=== PATIENT | female | born 1995 | race Caucasian/White ===

== ENCOUNTER 2018-02-16 12:40 | Outpatient (CLI) | payer OTHER, BC, SELFPAY ==
[2018-02-16 12:59] VITALS: BMI 21.9
--- NOTE | 2018-02-16 23:21 | OB.TRI.NOTE ---
History of Present Illness Date of Service: 02/16/18 Was patient seen by the physician?: No Reason For Visit: R/O LABOR Date of Service: 02/16/18 Final MYRON: 04/10/18 Final MYRON Source: US <20 weeks Gestational age: 32 Weeks and 3 Days History of Present Illness: 32+ week intrauterine presents with some transient contractions at home. Since she has arrived these have subsided. She has also had some white vaginal discharge. care otherwise uneventful. Allergies No Known Allergies Allergy (Verified 02/16/18 13:00) NST - FHR Rate Baby A NST Reactive:: Yes FHR Category:: Category I Uterine Activity:: No contractions noted on monitor. Impression/Plan 32+ week intrauterine with transient contractions and vaginal discharge. Cervix is nonthreatening and NST is reactive. No evidence of rupture of membranes. Will discharge to home with routine follow-up in the office.
== END 2018-02-16 13:55 | disposition home or self-care (01) ==
LOC: WPOUT 12:55 → WP 12:56
PROVIDERS: Family Provider Family Medicine; PCP Family Medicine; Visit Provider Obstetrics & Gynecology
DX: O60.03 Preterm labor without delivery, third trimester (principal); Z3A.32 32 weeks gestation of pregnancy
CPT/HCPCS: 59025; 59050; 87086; 99218; G0378

== ENCOUNTER → 2018-03-11 13:30 | Outpatient (CLI) | payer OTHER, BC, SELFPAY ==
[2018-03-12 12:34] LABS: Group B Strep DNA By PCR Negative (Negative); Internal Control PASS; Probe Check PASS; Specimen Processing Control PASS
== END ==
PROVIDERS: Visit Provider Obstetrics & Gynecology
DX: Z36.85 Encounter for antenatal screening for Streptococcus B (principal)
CPT/HCPCS: 87081; 87653

== ENCOUNTER 2018-03-24 10:15 | Outpatient (CLI) | payer OTHER, BC, SELFPAY ==
[2018-03-24 10:30] VITALS: BMI 24.2
[2018-03-24 11:20] LABS: ROM Internal Control Test YES-OK TO RESULT pt. (Internal QC); ROM Patient Test Negative (Negative)
--- NOTE | 2018-03-25 08:00 | OB.TRI.NOTE ---
History of Present Illness Date of Service: 03/24/18 Was patient seen by the physician?: No Reason For Visit: R/O LABOR Date of Service: 03/24/18 Final MYRON: 04/10/18 Final MYRON Source: US <20 weeks Gestational age: 37 Weeks and 5 Days History of Present Illness: 37+ week intrauterine presents with contractions. care unremarkable. Allergies No Known Allergies Allergy (Verified 03/24/18 10:45) NST - FHR Rate Baby A NST Reactive:: Yes FHR Category:: Category I Uterine Activity:: Multiple contractions noted. Impression/Plan 37+ week intrauterine with false labor. No change in cervix after observing for several hours. Reactive nonstress test. Will release to home with routine follow-up. To return with increasing strength of contractions.
== END 2018-03-24 12:50 | disposition home or self-care (01) ==
LOC: WPOUT 10:35 → WP 10:36
PROVIDERS: Family Provider Family Medicine; PCP Family Medicine; Visit Provider Obstetrics & Gynecology
DX: O47.1 False labor at or after 37 completed weeks of gestation (principal); Z3A.37 37 weeks gestation of pregnancy
CPT/HCPCS: 59025; 59050; 84112; 99218; G0378

== ENCOUNTER 2018-04-03 22:05 | Outpatient (CLI) | payer OTHER, BC, SELFPAY ==
[2018-04-03 22:53] VITALS: BMI 24.4
[2018-04-04 00:05] LABS: Mucous, Urine 0 SEEN /hpf (<or=2+)
[2018-04-04 00:08] LABS: Color, Urine Yellow (Yellow); Glucose, Dipstick Normal (Normal); Ketone-Dipstick 5 mg/dl (Negative); Leukocyte Esterase-Dipstick 500 /ul (Negative); Nitrite-Dipstick Negative (Negative); Occult Blood-Urine 150 /ul (Negative); Protein-Dipstick 30 mg/dl (Negative); Specific Gravity, Urine 1.015 (1.002-1.030); Urine Bilirubin Dipstick Negative (Negative); Urine Clarity Cloudy (Clear); Urine Urobilinogen 1 mg/dl (Normal)
[2018-04-04 00:18] LABS: Bacteria RARE /hpf (None Seen); Squamous Epithelial Cells - UA 0-5 SEEN /hpf (5-10); White Blood Cells >100 SEEN /hpf (0-5)
[2018-04-04 00:19] LABS: Red Blood Cells-Urine 0-5 SEEN /hpf (0-5)
--- NOTE | 2018-04-04 01:08 | OB.TRI.NOTE ---
- Problem List (1) False labor after 37 weeks of gestation without delivery Status: Acute (2) Acute cystitis during in third trimester Status: Acute History of Present Illness Was patient seen by the physician?: No Reason For Visit: R/O LABOR Date of Service: 04/04/18 Final MYRON: 04/10/18 Final MYRON Source: US <20 weeks Gestational age: 39 Weeks and 1 Days History of Present Illness: 22yo G1 @ 39 1/7wga with c/o painful contractions. Allergies No Known Allergies Allergy (Verified 04/03/18 22:54) NST - FHR Rate Baby A Baseline: 150 Variability:: Moderate Accelerations:: 15 x 15 Decelerations:: None NST Reactive:: Yes FHR Category:: Category I Uterine Activity:: 4/10 min Impression/Plan 39 1/7wga with acute cystitis, false labor, Cat I FHR -SVE 2-3cm/90/-3 per RN Exam x 2 - previously 4cm/90% effaced in office - likely same exam -U/A - with blood and leuks - Rx Keflex -d/c home -f/u in office next week as scheduled.
== END 2018-04-04 02:20 | disposition home or self-care (01) ==
LOC: WPOUT 22:36 → WP 22:41
PROVIDERS: Family Provider Family Medicine; PCP Family Medicine; Visit Provider Obstetrics & Gynecology
DX: O47.1 False labor at or after 37 completed weeks of gestation (principal); Z3A.39 39 weeks gestation of pregnancy; O23.13 Infections of bladder in pregnancy, third trimester
CPT/HCPCS: 59025; 59050; 81001; 99218; G0378

== ENCOUNTER 2018-04-04 05:05 | Inpatient (IN) | payer OTHER, BC, SELFPAY ==
[2018-04-04 05:36] VITALS: BMI 41.6
[2018-04-04] MEDS: Lactated Ringers 1,000 ML 50 ML IV (05:40)
[2018-04-04 06:14] LABS: Hematocrit 43.1 % (37-47); Hemoglobin 14.3 g/dl (12.0-15.0); Mean Corp Hgb Conc 33.2 g/gl (32-36); Mean Corpuscular Hgb 32.2 pg (27.0-32.0); Mean Corpuscular Volume 97.1 fL (81-99); Mean Platelet Vol. 13.4 fl (6.2-12.0); Platelet Count 150 K/mm3 (150-450); RBC Distribution Width CV 15.7 % (11.6-14.6); RBC Distribution Width SD 56.2 fl (35.1-43.9); Red Blood Count 4.44 M/mm3 (4.2-5.4); White Blood Count 16.1 K/mm3 (4.4-11.0)
[2018-04-04 06:19] LABS: Scan Indicated on CBC? Y/N NO
[2018-04-04] MEDS: Oxytocin 30 units/NS 500 ml 30 UNITS/500 ML IV.SOLN 334 UNITS IV (08:48)
--- NOTE | 2018-04-04 09:02 | PCM.OB.VAG ---
Vaginal Delivery Maternal Presentation: Active Labor, Spontaneous Rupture of Membranes Amniotic Membrane Rupture Type: Spontaneous at home Amniotic Fluid Description: Clear Final MYRON: 04/10/18 Final MYRON Source: US <20 weeks Gestational age: 39 Weeks and 1 Days Date of Procedure: 04/04/18 Pre-Operative Diagnosis: IUP Post-Operative Diagnosis: IUP Surgery/ Procedure Performed: Spontaneous Vaginal Delivery Type of Anesthesia: Local with 1% lidocaine Description of Procedure: Spontaneous vaginal delivery of a viable male with Apgars of 8/9 with a normal three-vessel placenta from an occiput anterior presentation. No episiotomy. Second-degree midline laceration repaired with 3-0 Rapide suture under local. Sponge counts okay. Delivery physician: Jamir Segura MD. Presentation: Vertex Placental Delivery Description: Spontaneous Placenta Disposition: [facility] Cord Vessel Description: 3 Vessels Cord Gases drawn per routine: ABG, VBG Cord Entanglement: None Estimated Blood Loss: 250 cc A gender: Male (1 minute): 8 (5 minute): 9 Episiotomy Description: None Laceration: Midline, Perineal Extension/lac, 2nd degree Medications given after delivery: IV Pitocin Complications: None
--- NOTE | 2018-04-04 09:05 | PCM.DCVAG ---
Discharge Diet: No Restrictions Discharge Activity: May Shower, May Take a Tub Bath May resume sexual activity in: 4-6 weeks Additional Activity Instructions:: Nothing in the vagina for 4-6 weeks. You may return to work/school in 6 weeks. Call your doctor if you observe: Fever of 101 or Higher, Inability to urinate, Inability to have a bowel movement, Using more than one pad per hour Additional Instructions: If you experience any of the following, contact your healthcare provider. Bleeding that soaks a pad every hour for 2 hours Unrelieved incision or abdominal pain Swelling, redness, discharge or bleeding from your incision or episiotomy site Your incision begins to separate Problems urinating (including inability to urinate or burning while urinating). Visual changes Severe headache Flu-like symptoms Pain or redness in one of both of your breasts Pain, warmth, tenderness or swelling in your legs, especially the calf area Frequent nausea and vomiting Symptoms of depression or anxiety If you experience any of the following, call 911 or go to the nearest Emergency Room. Chest pain Problems breathing Seizure activity Partial or complete paralysis of a body part, slurred speech, weakness or drooping of the face, or a sudden inability to walk or hold your balance Allergies/Adverse Reactions: Allergies No Known Allergies Allergy (Verified 04/03/18 22:54) Medications to take at Discharge Cranberry 400 mg PO DAILY 04/08/17 Ferrous Sulfate 325 mg PO DAILY 02/16/18 Folic Acid 0.8 mg PO DAILY 02/16/18 Xhu521/FA/Omega3/Dha/Fish Oil [ Gummies] 1 each PO DAILY 02/16/18 Cephalexin 500 mg PO Q6H #28 cap 04/04/18 Please Follow Up With: Jamir Segura MD - [phone] When: Call to make an appointment with your doctor in 6 weeks. Primary Care Physician: Hernandez Sifuentes MD [Primary Care Provider] - Test Results: Test results from this visit will be discussed in further detail at your follow-up appointment, if applicable.
--- NOTE | 2018-04-04 09:06 | DCINST_ITS ---
Discharge Diet: No Restrictions Discharge Activity: May Shower, May Take a Tub Bath May resume sexual activity in: 4-6 weeks Additional Activity Instructions:: Nothing in the vagina for 4-6 weeks. You may return to work/school in 6 weeks. Call your doctor if you observe: Fever of 101 or Higher, Inability to urinate, Inability to have a bowel movement, Using more than one pad per hour Additional Instructions: If you experience any of the following, contact your healthcare provider. * Bleeding that soaks a pad every hour for 2 hours * Unrelieved incision or abdominal pain * Swelling, redness, discharge or bleeding from your incision or episiotomy site * Your incision begins to separate * Problems urinating (including inability to urinate or burning while urinating) . * Visual changes * Severe headache * Flu-like symptoms * Pain or redness in one of both of your breasts * Pain, warmth, tenderness or swelling in your legs, especially the calf area * Frequent nausea and vomiting * Symptoms of depression or anxiety If you experience any of the following, call 911 or go to the nearest Emergency Room. * Chest pain * Problems breathing * Seizure activity * Partial or complete paralysis of a body part, slurred speech, weakness or drooping of the face, or a sudden inability to walk or hold your balance Allergies/Adverse Reactions: Allergies No Known Allergies Allergy (Verified 04/03/18 22:54) Medications to take at Discharge Cranberry 400 mg PO DAILY 04/08/17 Ferrous Sulfate 325 mg PO DAILY 02/16/18 Folic Acid 0.8 mg PO DAILY 02/16/18 Vbm642/FA/Omega3/Dha/Fish Oil [ Gummies] 1 each PO DAILY 02/16/18 Cephalexin 500 mg PO Q6H #28 cap 04/04/18 Please Follow Up With: Jamir Segura MD - [phone] When: Call to make an appointment with your doctor in 6 weeks. Primary Care Physician: Hernandez Sifuentes MD [Primary Care Provider] - Test Results: Test results from this visit will be discussed in further detail at your follow- up appointment, if applicable.
[2018-04-04] MEDS: Oxytocin 30 units/NS 500 ml 30 UNITS/500 ML IV.SOLN 167 UNITS IV (09:20)
[2018-04-04] MEDS: Acetaminophen 325 MG Tablet PO (09:26)
[2018-04-04] MEDS: 0.9% Saline Lock 10 ML Syringe IV (10:34)
[2018-04-04] MEDS: Ferrous Sulfate 325 MG Tablet PO (10:52)
[2018-04-04] MEDS: Folic Acid 1 MG Tablet PO (10:52)
[2018-04-04 11:44] VITALS: BP 122/69; PULSE 111; RESP 18; TEMP 36.9; O2SAT 97
[2018-04-04 15:56] VITALS: BP 104/73; PULSE 125; RESP 18; TEMP 37.1; O2SAT 98
[2018-04-04 20:45] VITALS: BP 122/65; PULSE 115; RESP 18; TEMP 36.7; O2SAT 97
[2018-04-05 00:30] VITALS: BP 108/64; PULSE 112; RESP 18; TEMP 36.6; O2SAT 98
[2018-04-05] MEDS: Ibuprofen 600 MG Tablet PO ×3 (00:54→20:03)
[2018-04-05 04:20] VITALS: BP 99/50; PULSE 113; RESP 18; TEMP 36.4; O2SAT 100
[2018-04-05 09:00] VITALS: BP 111/57; PULSE 103; RESP 16; TEMP 36.5
--- NOTE | 2018-04-05 09:21 | PCM.PN.OB ---
Subjective: day #1 Patient without complaints. Breast-feeding going well. Minimal vaginal bleeding. - Physical Exam Vital Signs Temp Pulse Resp BP Pulse Ox 97.5 F L 113 H 18 99/50 L 100 04/05/18 04:20 04/05/18 04:20 04/05/18 04:20 04/05/18 04:04/05/18 04:20 Oxygen Delivery Method Room Air Weight: 213 lb 6.4 oz Body Mass Index (BMI) 41.6 Intake and Output for Last 24 Hours 04/03/18 04/04/18 04/05/18 23:59 23:59 23:59 Intake Total 1300 / 1300 Output Total 1000 / 1000 Balance 300 / 300 Medical Necessity - Tobacco Use Smoking Status: Former smoker Assessment/Plan All Active Problems False labor after 37 weeks of gestation without delivery (Acute) Acute cystitis during in third trimester (Acute) day #1 Doing well. Continuing present care.
[2018-04-05] MEDS: Ferrous Sulfate 325 MG Tablet PO (11:42)
[2018-04-05] MEDS: Folic Acid 1 MG Tablet PO (11:42)
[2018-04-05 14:00] VITALS: BP 107/62; PULSE 102; RESP 17; TEMP 36.5
[2018-04-05 19:52] VITALS: BP 105/58; PULSE 103; RESP 18; TEMP 37.1
[2018-04-05] MEDS: Senna/Docusate Sodium 1 Tablet PO (20:03)
[2018-04-06 02:00] VITALS: BP 112/68; PULSE 116; RESP 18; TEMP 36.6
--- NOTE | 2018-04-06 07:58 | PCM.PN.OB ---
Subjective: Patient without complaints. Ready to go home. - Physical Exam Vital Signs Temp Pulse Resp BP Pulse Ox 98 F 116 H 18 112/68 100 04/06/18 02:00 04/06/18 02:00 04/06/18 02:00 04/06/18 02:00 04/05/18 04:20 Oxygen Delivery Method Room Air Weight: 213 lb 6.4 oz Body Mass Index (BMI) 41.6 Intake and Output for Last 24 Hours 04/04/18 04/05/18 04/06/18 23:59 23:59 23:59 Intake Total 1300 / 1300 Output Total 1000 / 1000 Balance 300 / 300 Medical Necessity - Tobacco Use Smoking Status: Former smoker Assessment/Plan All Active Problems False labor after 37 weeks of gestation without delivery (Acute) Acute cystitis during in third trimester (Acute) Doing well. Will release with routine instructions.
[2018-04-06] MEDS: Senna/Docusate Sodium 1 Tablet PO (09:09)
[2018-04-06] MEDS: Ferrous Sulfate 325 MG Tablet PO (09:09)
[2018-04-06 09:10] VITALS: BP 101/58; PULSE 106; RESP 24; TEMP 36.6; O2SAT 100
[2018-04-06] MEDS: Ibuprofen 600 MG Tablet PO (09:10)
[2018-04-06] MEDS: Folic Acid 1 MG Tablet PO (09:10)
== END 2018-04-06 14:40 | disposition home or self-care (01) | DRG 775 ==
PROVIDERS: Admitting Provider Obstetrics & Gynecology; Family Provider Family Medicine; PCP Family Medicine; Visit Provider Obstetrics & Gynecology
DX: O70.1 Second degree perineal laceration during delivery (principal); Z37.0 Single live birth; Z3A.39 39 weeks gestation of pregnancy
CPT/HCPCS: 59025; 59050; 85027; 86850; 86900; 99218; J7120; A4216; G0378

== ENCOUNTER 2018-04-09 18:47 | Outpatient (CLI) | payer BC, SELFPAY | END 2018-04-09 19:47 | disposition home or self-care (01) | LOC: WPOUT 18:49 → WP 18:50 | PROVIDERS: Family Provider Family Medicine; PCP Family Medicine; Visit Provider Obstetrics & Gynecology | DX: Z39.1 Encounter for care and examination of lactating mother (principal) | CPT/HCPCS: 96152 ==

== ENCOUNTER 2019-06-27 19:55 | Emergency (ER) | payer OTHER, BC, SELFPAY ==
[2019-06-27 19:55] VITALS: BP 135/89; PULSE 115; RESP 16; TEMP 37
[2019-06-27 19:56] VITALS: BP 135/89; PULSE 115; RESP 16; TEMP 37; BMI 24.8
--- NOTE | 2019-06-27 21:07 | US_ITS ---
STUDY: FIRST TRIMESTER OBSTETRICAL ULTRASOUND REASON FOR EXAM: Female, 24 years old bleeding LMP: Unknown. TECHNIQUE: Transvaginal TECHNICAL QUALITY: Adequate. PRIOR ULTRASOUND: None. FINDINGS: There is visualization of a single gestational sac in a normal intrauterine position. The mean sac diameter (MSD) measures 1.02 cm, indicating an estimated gestational age (EGA) of 5 weeks, 5 days. The gestational sac shape is within normal limits. There is no demonstrated yolk sac. The placenta is non-visualized. There is no demonstrated embryo ( pole). The estimated gestation age (EGA) by US is 5 weeks, 5 days. The estimated date of delivery (MYRON) by US is 02/22/2020. The uterus measures 7.7 x 5.9 x 5.2. There is no demonstrated uterine fibroid. The cervix is closed. Endometrium measures 2.1 cm The right ovary measures 3.1 x 2.8 x 2.3 cm. There is a simple 1.5 cm cyst. The left ovary measures 2.7 x 2.0 x 1.3 cm. There is no left ovarian cyst. There is no visualized left adnexal mass or complex lesion. There is no fluid in the cul de sac. US/Transvaginal w/Preg US IMPRESSION: There is a normal-appearing gestational sac within the uterus. However, the gestational sac shows no yolk sac pole or heart rate. It is likely too early to determine viability as the gestational sac measures only 5 weeks 5 days. Short-term follow-up ultrasound in 5-7 days recommended along with serial beta-hCG studies to determine viability. No suspicious adnexal mass or free fluid is suspected ectopic Electronically Signed: Yevgeniy Collazo MD at 22:53 EDT , Service support ,
[2019-06-27 21:19] LABS: Mucous, Urine 0 SEEN /hpf (<or=2+)
[2019-06-27 21:20] LABS: Color, Urine Yellow (Yellow); Glucose, Dipstick Normal (Normal); Ketone-Dipstick 5 mg/dl (Negative); Leukocyte Esterase-Dipstick 25 /ul (Negative); Nitrite-Dipstick Negative (Negative); Occult Blood-Urine 250 /ul (Negative); Protein-Dipstick 15 mg/dl (Negative); Urine Bilirubin Dipstick Negative (Negative); Urine Clarity Sl. Cloudy (Clear); Urine Urobilinogen Normal (Normal)
[2019-06-27 21:22] LABS: Absolute Lymphocyte Count 1.46 X10^3/uL (0.83-4.51); Absolute Neutrophil Count 3.9 X10^3/uL (2.0-7.7); Basophil# 0.03 X10^3/uL; Basophil% 0.5 % (0-1); Eosinophil# 0.02 X10^3/uL; Eosinophils% 0.3 % (0-5); Hemoglobin 13.5 g/dL (12.0-15.0); Lymphocyte # 1.46 X10^3/ul (4.0); Lymphocyte % 24.4 % (19-41); Mean Corp Hgb Conc 32.9 g/dL (32-36); Mean Corpuscular Hgb 32.1 pg (27.0-32.0); Mean Corpuscular Volume 97.4 fL (81-99); Mean Platelet Vol. 11.6 fl (6.2-12.0); Monocyte# 0.55 X10^3/uL; Monocyte% 9.2 % (0-10); NRBC Flagged by Analyzer 0 % (0-5); Neutrophil # 3.92 X10^3/uL (2.7-7.7); Neutrophil % 65.4 % (47-70); Platelet Count 225 K/mm3 (150-450); RBC Distribution Width SD 46.5 fl (35.1-43.9); Red Blood Count 4.21 M/mm3 (4.2-5.4)
[2019-06-27 21:26] LABS: Bacteria 1+ /hpf (None Seen); Red Blood Cells-Urine 0-5 SEEN /hpf (0-5); Squamous Epithelial Cells - UA 0-5 SEEN /hpf (5-10); White Blood Cells 0-5 SEEN /hpf (0-5)
[2019-06-27] MEDS: 0.9% Normal Saline 1,000 ML 1000 ML IV (21:28)
[2019-06-27 21:45] LABS: hCG Titer Quant., Serum 5445 mIU/mL (1-3)
[2019-06-27 22:00] VITALS: PULSE 67; RESP 18; O2SAT 97
--- NOTE | 2019-06-27 23:31 | ED.DCSUM_ITS ---
- ER Visit Summary Date of Service: 06/27/19 Chief Complaint: Possible miscarriage History of Present Illness: The patient is a 24 F who presents with a possible miscarriage that began today. Patient states she has been having some cramping and bleeding today. Patient states she started passing clots today. Patient states the cramping is over the suprapubic area. Patient states she is approximately 8 weeks . Patient is 3 para 1 with 1 spontaneous . Patient denies any nausea or vomiting. Patient denies any urinary complaints. Patient denies any fevers or chills. Physical Examination: Vital signs are stable except for mild tachycardia of 115. Patient is afebrile. Patient is in no acute distress. Oral mucosa is pink and moist. Neck is supple. Trachea is midline. There is no JVD noted. Heart was regular rate and rhythm. Lungs are clear and equal bilaterally. Abdomen is soft. Bowel sounds are normal. There is no tenderness. There is no guarding. There is no rebound. Cranial nerves II through XII are intact. There are no focal motor or sensory deficits noted. Test Results: CBC and urinalysis was within normal limits. Quantitative hCG was 5445. Pelvic ultrasound showed a gestational sac measuring 5 weeks and 5 days. There is no pole, yolk sac, or heart rate. There is no suspicious adnexal mass or free fluid suggesting ectopic . Emergency Department Course and Treatment: Patient was instructed on complete vaginal rest. Patient was instructed to follow-up with her OPTOMETRIC ASSISTANT in 2 days for repeat evaluation. Patient was instructed on signs and symptoms which should prompt return to the emergency department. Patient understood and was agreeable with the plan. All questions were answered. Disposition: Discharge home Impression: Threatened spontaneous This note was generated with [employer] software. It may contain incorrect words, spelling, and punctuation that were not noted in review of the chart prior to signing ED Disposition - Plan for ED Patient: Disposition: Home or Assisted Living Diagnosis: Threatened in first trimester Instructions: POSSIBLE MISCARRIAGE (Threatened ) Referrals: Hernandez Sifuentes MD [Primary Care Provider] - 2 Days Jamir Segura MD [STAFF PHYSICIAN] - 2 Days
[2019-06-27 23:35] VITALS: BP 104/72; PULSE 67; RESP 18; O2SAT 97
== END 2019-06-27 23:48 | disposition home or self-care (01) ==
PROVIDERS: Emergency Provider Emergency Medicine; Family Provider Family Medicine; PCP Family Medicine
DX: O03.9 Complete or unspecified spontaneous abortion without complication (principal)
CPT/HCPCS: 76817; 81001; 84702; 85025; 86900; 86901; 96360; 99283; J7030; A4216

== ENCOUNTER 2020-12-08 08:00 | Inpatient (IN) | payer OTHER, BC, SELFPAY ==
[2020-12-08] VITALS (18 sets, daily range): BP systolic 103–145; BP diastolic 56–72; PULSE 90–148; RESP 16–18; TEMP 36.2–37.4; O2SAT 95; BMI 28.5
[2020-12-08] MEDS: Lactated Ringers 1,000 ML 50 ML IV (08:20)
[2020-12-08 08:34] LABS: Absolute Lymphocyte Count 1.34 X10^3/uL (0.83-4.51); Basophil# 0.02 X10^3/uL; Basophil% 0.2 % (0-1); Eosinophil# 0.03 X10^3/uL; Eosinophils% 0.3 % (0-5); Hematocrit 41.5 % (37-47); Hemoglobin 14.1 g/dL (12.0-15.0); Lymphocyte # 1.34 X10^3/ul (4.0); Lymphocyte % 14.6 % (19-41); Mean Corpuscular Hgb 32.9 pg (27.0-32.0); Mean Platelet Vol. 12.1 fl (6.2-12.0); Monocyte# 0.72 X10^3/uL; Monocyte% 7.9 % (0-10); NRBC Flagged by Analyzer 0 % (0-5); Neutrophil # 6.98 X10^3/uL (2.7-7.7); Neutrophil % 76.1 % (47-70); Platelet Count 179 K/mm3 (150-450); RBC Distribution Width SD 53.2 fl (35.1-43.9); Red Blood Count 4.28 M/mm3 (4.2-5.4); White Blood Count 9.2 K/mm3 (4.4-11.0)
--- NOTE | 2020-12-08 10:44 | HP.PCM_ITS ---
History and Physical Date of Admission: 12/08/20 ACOG ANTEPARTUM RECORD - HISTORY AND PHYSICAL (12/08/2020) Name: SHAYLA AYALA History of this : This is a 25 year old [id number] presents at 40 wks + 1 days gestation in active labor. She believes her donovan broke. OB Physician: Jamir Segura MD [facility] Physician: Dr Sifuentes in [place] ...................................................................... : 1995 Age: 25 Address: [address] [place] [address] Phone: (h) [phone] Insurance Carrier: [facility] [id number] Emergency Contact: HEIDI SANDRA [phone] ...................................................................... Final MYRON: 12/07/20 By Ultrasound: 9 weeks 0 days PARITY: (G-Total Pregnancies P-Fullterm,Premature,Induced AB,Spont AB, Ectopics, Multiple,Living) MYRON CONFIRMATION: By LMP: 03/02/20 Initial Exam: 12/07/20 By First Ultrasound Exam: 12/05/20 Final MYRON: 12/07/20 OB PROBLEM LIST: Declines AFP and CF tests. Has had spinal fusion in 2011...unsure if epidural allowed. Dilated renal pelvis right=5.6mm Left=5.7mm at 20 weeks; repeat u/s at 28 weeks Unchanged at 28wk u/s ALLERGIES: No Known Allergies MEDICATIONS: Flintstones Complete (iron) chewable tablet Two pills by mouth once a day folic acid 800 mcg tablet One pill by mouth once a day SOCIAL HISTORY: Smoking - used to smoke but quit and Quit in 2017 Alcohol Use - None Diet - balanced Diet, 1 cup coffee sev times w and water intake-1-2 liters Lifestyle - moderate stress lifestyle and Exercise - Active with 2 yo. Enc 20 min daily to walk. 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 Place of - [place] Hours Worked - 24 Spouse-Sig Other Name - Deejay Ayala Spouse-Sig Other Occupation - [employer] Spouse-Sig Other Phone No - [phone] Children Name(s) - Gilson(18) PRIOR DELIVERY HISTORY DEL DATE GEST LAB WT LB WT OZ TYPE ANES LABOR TX Sep 03 5 0 0 0 Sab None No Jul 04 8 0 0 0 Sab None No Oct 05 4 0 0 0 Sab None No Apr 02 39 12 7 13 Vag Local No Apr 01 6 0 0 0 Sab General No ANTEPARTUM FLOW CHART VISIT RTC FU F F NJ U U DATE WK MD WKS HT PN HR M SS BP ED WT NJ GL D EF ST __ ____ ___ __ __ ___ __ __ __ ___ __ __ __ ___ __ 23 Nov 39 JMW 1 38 V + + 112/76 sl 146 tr - 2+ 50 -2 16 Nov JM 1 38 V + + 112/68 sl 145 tr - 1 50 -2 09 Nov 37 JMW 1 37 V + + 112/66 sl 143 - - S 02 Nov 36 JMW 1 37 V + + 108/74 sl 143 - - 1 50 -2 23 Oct 35 JMW 1 35 V + + 110/66 sl 144 - - ft 50 -2 09 Oct 33 JMW 2 33 + + 112/64 0 142 - - 19 Oct 15 JM 2 30 - + + 102/64 0 140 - - 29 Sep 11 JMW 3 27 + + 110/68 sl 139 - tr Sep 07 JMW 4 24 + + 108/64 sl 138 1+ - 04 Aug 05 JMW 4 20 + + 120/70 0 134 tr - 13 Jul 01 JMW 3 16 + + 118/68 0 134 1+ - 15 May 28 JMW 4 + O 112/66 0 133 tr - ANTEPARTUM NOTE(S): Dec 06 2020: Ctxs-occas, Low Pressure,Good FM Nov 29 2020: Ctxs-occas and Doing Well Nov 22 2020: Ctxs-occas, Good FM Nov 15 2020: GBS Today,Occ Cxts Nov 08 2020: Good FM,LARC form signed Oct 25 2020: Doing Well, U/S today Oct 04 2020: Doing Well Sep 13 2020: CBC,OGCT,TSH,Free T3, Free T4 Today, Aug 16 2020: Doing Well, Glucola given with instructions Jul 20 2020: feeling well. AM, Good FM Jun 28 2020: Doing Well, Declines AFP May 31 2020: Doing Well, uterine entrapment syn COMPREHENSIVE ANTEPARTUM NOTE(S): Nov 29 2020: 38wk, declines membrane sweeping. JM Nov 21 2020: H taken to OB. tkg Oct 04 2020: 30wk, CBC iron def 9.8. Now on iron BID. Thyroid panel now wnl. renal pelviectasis 6mm, repeat u/s at next visit. Pt with spinal fusion, does not want epidural therefore no anesthesia consult needed. Aug 16 2020: Shayla presents for her PNV. SHe has 1+ protein in her urine today and long dip shows clear except Sp Gr is 1.030. I reviewed with the pt the importance of pushing her water intake. Pt relates she does not like water but is trying to drink the zero calorie flavored water and has also been drinking a lot of gatorade. Advised to avoid gatorade as has too much sodium for regular consumption, and try t May 10 2020: TELEHEALTH NOB: Shayla is a 24 yo G 6 P 1 homemaker with MYRON 12-07-20 planning a vag del without an epidural at [facility], using Dr Sifuentes in [place] for post discharge ped care and to breastfeed. Her , Deejay works for [employer]. They have a two year old son, Gilson. Shayla has NKA to meds, food, latex or the environment. Her diet is balanced with about one cup of coffee q few May 04 2020: ok May 04 2020: Shayla is here today with missed menses. LMP was 6-17-20 . She is at 9 weeks. Having c/o of breast tenderness and nausea but no vomiting. UPT is positive. Allergy and medication list updated with no changes. information packet given. Here with mother. Very excited about . History of 4 spontaneous AB. LSS REVIEW OF SYSTEMS: GENERAL - Denies fever, or chills SKIN - Denies rash, new skin lesions, or change in moles EYES - Denies blurred vision, or change in visual acuity EARS - Denies ear pain, or difficulty hearing NOSE - Denies nasal congestion, discharge, or bleeding MOUTH - Denies sore throat, or difficulty swallowing NECK - Denies pain or swelling RESPIRATORY - Denies shortness of breath, cough, wheezing CARDIOVASCULAR - Denies palpitations, chest pain, orthopnea, PND, peripheral edema, syncope or claudication GASTROINTESTINAL - Denies nausea, vomiting, diarrhea, constipation, Denies abdominal pain, melena and or bright red blood GENITOURINARY - Denies dysuria, frequency of urination, urgency, or hesitancy MUSCULOSKELETAL - Denies joint or muscle pain, or back pain NEUROLOGICAL - Denies localized numbness, weakness, or tingling PSYCHIATRIC - Denies depression, anxiety, substance abuse or suicide attempts ENDOCRINE - Denies heat or cold intolerance, weight loss or gain, increasing thirst HEMATO-IMMUNOLOGIC - Denies easy bruising, bleeding, oral ulcerations or recurrent infections GENETICS SCREENING: Age 35+ years: No Thalassemia: No Neural Tube Defect: No Down Syndrome: No RUBEN-SACHS: No Sickle Cell Disease: No Hemophilia: No Musc. Dystrophy: No Cystic Fibrosis: No-declines screening [place] Chorea: No Mental Retardation: No Fragile X: No Other genetic: No Other defects: No SABs/still births: Yes x4 Drugs since LMP: No INFECTION HISTORY: High risk AIDS: No High risk Hepatitis: No Exposed to TB: No Exposed to Herpes: No Rash/viral illness since LMP: No History of STD: No MENSTRUAL HISTORY: *Menses Amount/Duration: 3 daysMenses Regularity: RegularFrequency: monthlyMenarche (Age Onset): 12* PAST SUMMARY: PARITY: 1. Total Pregnancies............ 6 2. Full Term Pregnancies........ 1 3. Premature.................... 0 4. Abortions - Induced.......... 0 5. Abortions - Spontaneous...... 4 6. Ectopics..................... 0 7. Multiple Births.............. 0 8. Living Children.............. 1 PAST #1: Date of :.................. 04/09/17 Gestation Weeks:................ 6 Length of labor(hours):......... 0 Sex:............................ UNKNOWN Weight-lbs:............... 0 Weight-oz:................ 0 Type of Delivery:............... Sab Type of Anesthesia:............. General Place of Delivery:.............. [place] Treatment of Labor?:.... No Comment: PAST #2: Date of :.................. 04/04/18 Gestation Weeks:................ 39 Length of labor(hours):......... 12 Sex:............................ M Weight-lbs:............... 7 Weight-oz:................ 13 Type of Delivery:............... Vag Type of Anesthesia:............. Local Place of Delivery:.............. [place] Treatment of Labor?:.... No Comment: ANEMIA, PAST #3: Date of :.................. 06/16/19 Gestation Weeks:................ 8 Length of labor(hours):......... 0 Sex:............................ UNKNOWN Weight-lbs:............... 0 Weight-oz:................ 0 Type of Delivery:............... Sab Type of Anesthesia:............. None Place of Delivery:.............. [place] Treatment of Labor?:.... No Comment: PAST #4: Date of :.................. 08/16/19 Gestation Weeks:................ 5 Length of labor(hours):......... 0 Sex:............................ UNKNOWN Weight-lbs:............... 0 Weight-oz:................ 0 Type of Delivery:............... Sab Type of Anesthesia:............. None Place of Delivery:.............. [place] Treatment of Labor?:.... No Comment: PAST #5: Date of :.................. 09/30/19 Gestation Weeks:................ 4 Length of labor(hours):......... 0 Sex:............................ UNKNOWN Weight-lbs:............... 0 Weight-oz:................ 0 Type of Delivery:............... Sab Type of Anesthesia:............. None Place of Delivery:.............. [place] Treatment of Labor?:.... No Comment: PHYSICAL EXAMINATION General Appearence: 25 yo female in no acute distress Vital Signs: AF, VSS Heart: RRR without rubs or gallops Lungs: CTA x 2 Breasts: deferred Abdomen: gravid Pelvis: Cervix: 4 cm, 90% effaced Presentation: cephalic Station: -2 Fetus: Size: AGA Movement: present Heart: present LAB TEST(S) ORDERED SINCE:03/12/20 09/14/2020 T3, FREE [CCL] 09/13/2020 TSH 09/13/2020 T4-FREE (FREE THYROXINE) 09/13/2020 GLUCOSE CHALLENGE 50GM 1 HOUR 09/13/2020 CBC + DIFF 05/09/2020 IGP,RFX APTIMA HPV ALL PTH 05/06/2020 WRITTEN AUTHORIZATION 05/06/2020 URINALYSIS, COMPLETE 05/06/2020 SPECIMEN STATUS REPORT 05/06/2020 MICROSCOPIC EXAMINATION 05/06/2020 CHLAMYDIA/GC AMPLIFICATION 05/06/2020 CBC/D/PLT+RPR+UA+RH+ABO+RUB... 12/08/2020 COVID 19 AG RAPID (RN COLLECT) 12/08/2020 CBC W/DIFF, AUTOMATED 11/20/2020 TEST CODE CHANGE 11/20/2020 STREP GP B CULTURE == ==== Order Observation Description Value Ref_Range A* Site == ==== COVID 19 AG RAP NOTE MALIN CBC W/DIFF, AUT NOTE [facility] CBC W/DIFF, AUT WBC 9.2 K/mm3 4.4-11.0 ML CBC W/DIFF, AUT RBC 4.28 M/mm3 4.2-5.4 ML CBC W/DIFF, AUT HGB 14.1 g/dL 12.0-15.0 ML CBC W/DIFF, AUT HCT 41.5 37-47 ML CBC W/DIFF, AUT MCV 97.0 fL 81-99 ML CBC W/DIFF, AUT MCH 32.9 pg 27.0-32.0 H ML CBC W/DIFF, AUT MCHC 34.0 g/dL 32-36 ML CBC W/DIFF, AUT RDW CV 15.0 11.6-14.6 H ML CBC W/DIFF, AUT RDW SD 53.2 fl 35.1-43.9 H ML CBC W/DIFF, AUT PLT 179 K/mm3 150-450 ML CBC W/DIFF, AUT MPV 12.1 fl 6.2-12.0 H ML CBC W/DIFF, AUT NEUT% 76.1 47-70 H ML CBC W/DIFF, AUT LY% 14.6 19-41 L ML CBC W/DIFF, AUT MONO% 7.9 0-10 ML CBC W/DIFF, AUT EO% 0.3 0-5 ML CBC W/DIFF, AUT BASO% 0.2 0-1 ML CBC W/DIFF, AUT IG% 0.900 0.0-0.9 ML IG% - Immature Granulocytes (promyelocytes, myelocytes and metamyelocytes) > 1% indicates that a LEFT SHIFT is Present. CBC W/DIFF, AUT ABSOLUTE NEUT 7.0 X10 3/uL 2.0-7.7 ML CBC W/DIFF, AUT ABSOLUTE LYMPH 1.34 X10 3/uL 0.83-4.51 ML CBC W/DIFF, AUT NUCLEATED RBC 0 0-5 ML STREP GP B CULT STREP GP B CULTURE Negative Negative LC_CB Centers for Disease Control and Prevention (CDC) and Citizen Of The [place] Congress of Obstetricians and Gynecologists (ACOG) guidelines for prevention of group B streptococcal (GBS) disease specify co-collection of a vaginal and rectal swab specimen to maximize sensitivity of GBS detection. Per the CDC and ACOG, swabbing both the lower vagina and rectum substantially increases the yield of detection compared with sampling the vagina alone. . Penicillin G, ampicillin, or cefazolin are indicated for intrapartum prophylaxis of GBS colonization. Reflex susceptibility testing should be performed prior to use of clindamycin only on GBS isolates from penicillin-allergic women who are considered a high risk for anaphylaxis. Treatment with vancomycin without additional testing is warranted if resistance to clindamycin is noted. TEST CODE [place] TEST CODE CHANGE LC_CB Please note that the Microbiology test code was changed to reflect the specimen source or transport received. T3, FREE [CCL] NOTE [facility] T3, FREE [CCL] FREE T3 3.0 pg/mL 2.3-4.1 [id number] [place] [address] Tomy Carcamo III, M.D. [id number] GLUCOSE CHALLEN NOTE [facility] GLUCOSE CHALLEN GLUCOSE CHALLENGE 50GM 1 [facility] 50 GMS 1 HOUR GLUCOSE CHALLEN GLUCOSE 1HR 134 mg/dl 70 - 140 [facility] T4-FREE (FREE T NOTE [facility] T4-FREE (FREE T T4 FREE 0.89 ng/dl 0.76 - 1.46 JPMHLAB Potential of falsely elevated results when biotin concentrations are > 10 ng/mL. TSH NOTE [facility] TSH TSH 1.76 uIU/ml 0.35 - 3.74 [facility] CBC + DIFF NOTE [facility] CBC + DIFF CBC + DIFF [facility] CBC-COMPLETE BLOOD COUNT CBC + DIFF WBC 7.6 x 10EE3/UL 4.5 - 10.8 [facility] CBC + DIFF RBC 3.05 x 10EE6/UL 4.10 - 5.30 L [facility] CBC + DIFF HEMOGLOBIN 9.8 g/dl 12.0 - 16.0 L [facility] CBC + DIFF HEMATOCRIT 28.5 % 34.0 - 46.0 L [facility] CBC + DIFF MCV 93 fl 80 - 99 [facility] CBC + DIFF MCH 32 pg 27 - 33 [facility] CBC + DIFF MCHC 34 X10 3 32 - 36 [facility] CBC + DIFF RDW/CV 12.9 % 12.0 - 15.6 [facility] CBC + DIFF PLATELET 256 x10EE3/UL 150 - 450 [facility] CBC + DIFF MPV 9.8 fl 6.6 - 10.5 [facility] AUTOMATED DIFFERENTIAL CBC + DIFF NEUT % 79.3 % 46.0 - 76.0 H [facility] CBC + DIFF LYMPH % 12.8 % 20.0 - 45.0 L [facility] CBC + DIFF MONOS % 7.1 % 0.0 - 10.0 [facility] CBC + DIFF EO % 0.5 % 0.0 - 7.0 [facility] CBC + DIFF BASO % 0.3 % 0.0 - 2.0 [facility] CBC + DIFF LYMPH # 1.00 x10EE3/UL 0.80 - 2.80 [facility] CBC + DIFF NEUT # 6.10 x10EE3/UL 1.50 - 7.10 [facility] CBC + DIFF MONO # 0.50 x10EE3/UL 0.20 - 1.00 [facility] CBC + DIFF EO # 0.00 x10EE3/UL 0.00 - 0.50 [facility] CBC + DIFF BASO # 0.00 x10EE3/UL 0.00 - 0.10 [facility] CBC + DIFF MANUAL DIFF N/A [facility] CBC + DIFF MORPHOLOGY N/A [facility] {CD] CBC/D/PLT+RPR+U TSH 0.148 uIU/mL 0.450-4.500 L LC_CB CBC/D/PLT+RPR+U HBSAG SCREEN Negative Negative LC_CB CBC/D/PLT+RPR+U RPR Non Reactive Non Reactive LC_CB CBC/D/PLT+RPR+U RUBELLA ANTIBODIES, IGG 1.56 index Immune >0.99 LC_CB Non-immune <0.90 Equivocal 0.90 - 0.99 Immune >0.99 CBC/D/PLT+RPR+U ABO GROUPING A LC_CB CBC/D/PLT+RPR+U RH FACTOR Positive LC_CB Please note: Prior records for this patient's ABO / Rh type are not available for additional verification. CBC/D/PLT+RPR+U ANTIBODY SCREEN Negative Negative LC_CB CBC/D/PLT+RPR+U HIV SCREEN 4TH GENERATIO Non Reactive Non Reactive LC_CB CBC/D/PLT+RPR+U WBC 7.5 x10E3/uL 3.4-10.8 LC_CB CBC/D/PLT+RPR+U RBC 4.32 x10E6/uL 3.77-5.28 LC_CB CBC/D/PLT+RPR+U HEMOGLOBIN 14.2 g/dL 11.1-15.9 LC_CB CBC/D/PLT+RPR+U HEMATOCRIT 40.3 % 34.0-46.6 LC_CB CBC/D/PLT+RPR+U MCV 93 fL 79-97 LC_CB CBC/D/PLT+RPR+U MCH 32.9 pg 26.6-33.0 LC_CB CBC/D/PLT+RPR+U MCHC 35.2 g/dL 31.5-35.7 LC_CB CBC/D/PLT+RPR+U RDW 12.2 % 11.7-15.4 LC_CB CBC/D/PLT+RPR+U PLATELETS 226 x10E3/uL 150-450 LC_CB CBC/D/PLT+RPR+U NEUTROPHILS 76 % Not Estab. LC_CB CBC/D/PLT+RPR+U LYMPHS 18 % Not Estab. LC_CB CBC/D/PLT+RPR+U MONOCYTES 6 % Not Estab. LC_CB CBC/D/PLT+RPR+U EOS 0 % Not Estab. LC_CB CBC/D/PLT+RPR+U BASOS 0 % Not Estab. LC_CB CBC/D/PLT+RPR+U IMMATURE CELLS LC_CB CBC/D/PLT+RPR+U NEUTROPHILS (ABSOLUTE) 5.7 x10E3/uL 1.4-7.0 LC_CB CBC/D/PLT+RPR+U LYMPHS (ABSOLUTE) 1.3 x10E3/uL 0.7-3.1 LC_CB CBC/D/PLT+RPR+U MONOCYTES(ABSOLUTE) 0.5 x10E3/uL 0.1-0.9 LC_CB CBC/D/PLT+RPR+U EOS (ABSOLUTE) 0.0 x10E3/uL 0.0-0.4 LC_CB CBC/D/PLT+RPR+U BASO (ABSOLUTE) 0.0 x10E3/uL 0.0-0.2 LC_CB CBC/D/PLT+RPR+U IMMATURE GRANULOCYTES 0 % Not Estab. LC_CB CBC/D/PLT+RPR+U IMMATURE GRANS (ABS) 0.0 x10E3/uL 0.0-0.1 LC_CB CBC/D/PLT+RPR+U NRBC LC_CB CBC/D/PLT+RPR+U HEMATOLOGY COMMENTS: LC_CB CBC/D/PLT+RPR+U SPECIFIC GRAVITY TNP LC_CB Test not performed CBC/D/PLT+RPR+U PH TNP LC_CB Test not performed CBC/D/PLT+RPR+U URINE-COLOR LC_CB CBC/D/PLT+RPR+U APPEARANCE LC_CB CBC/D/PLT+RPR+U WBC ESTERASE LC_CB CBC/D/PLT+RPR+U PROTEIN TNP LC_CB Test not performed CBC/D/PLT+RPR+U GLUCOSE TNP LC_CB Test not performed CBC/D/PLT+RPR+U KETONES TNP LC_CB Test not performed CBC/D/PLT+RPR+U OCCULT BLOOD LC_CB CBC/D/PLT+RPR+U BILIRUBIN LC_CB CBC/D/PLT+RPR+U UROBILINOGEN,SEMI-QN LC_CB CBC/D/PLT+RPR+U NITRITE, URINE LC_CB CBC/D/PLT+RPR+U MICROSCOPIC EXAMINATION LC_CB SPECIMEN STATUS SPECIMEN STATUS REPORT REFERT LC_CB Please refer to the following specimen for additional lab results. TEST: [id number] Urinalysis Gross Exam Panel: [id number] SEE: [id number] CHLAMYDIA/GC AM CHLAMYDIA TRACHOMATIS, N Negative Negative LC_=G CHLAMYDIA/GC AM NEISSERIA GONORRHOEAE, N Negative Negative LC_=G URINALYSIS, COM SPECIFIC GRAVITY 1.029 1.005-1.030 LC_CB URINALYSIS, COM PH 7.0 5.0-7.5 LC_CB URINALYSIS, COM URINE-COLOR Yellow Yellow LC_CB URINALYSIS, COM APPEARANCE Cloudy Clear A LC_CB URINALYSIS, COM WBC ESTERASE 1+ Negative A LC_CB URINALYSIS, COM PROTEIN Trace Negative/Trace LC_CB URINALYSIS, COM GLUCOSE Negative Negative LC_CB URINALYSIS, COM KETONES Negative Negative LC_CB URINALYSIS, COM OCCULT BLOOD Negative Negative LC_CB URINALYSIS, COM BILIRUBIN Negative Negative LC_CB URINALYSIS, COM UROBILINOGEN,SEMI-QN 1.0 mg/dL 0.2-1.0 LC_CB URINALYSIS, COM NITRITE, URINE Negative Negative LC_CB URINALYSIS, COM MICROSCOPIC EXAMINATION Negative LC_CB URINALYSIS, COM MICROSCOPIC EXAMINATION See below: LC_CB Microscopic was indicated and was performed. MICROSCOPIC EXA WBC 0-5 /hpf 0 - 5 LC_CB MICROSCOPIC EXA RBC 3-10 /hpf 0 - 2 A LC_CB MICROSCOPIC EXA EPITHELIAL CELLS (NON RE 0-10 /hpf 0 - 10 LC_CB MICROSCOPIC EXA EPITHELIAL CELLS (RENAL) LC_CB MICROSCOPIC EXA CASTS LC_CB MICROSCOPIC EXA CAST TYPE LC_CB MICROSCOPIC EXA CRYSTALS LC_CB MICROSCOPIC EXA CRYSTAL TYPE LC_CB MICROSCOPIC EXA MUCUS THREADS Present Not Estab. LC_CB MICROSCOPIC EXA BACTERIA Few None seen/Few LC_CB MICROSCOPIC EXA YEAST LC_CB MICROSCOPIC EXA TRICHOMONAS LC_CB WRITTEN AUTHORI WRITTEN AUTHORIZATION LC_CB Written Authorization Received. Authorization received from PER ORIGINAL ORDER 05-05-2020 Logged by Lo Almeida IGP,RFX APTIMA DIAGNOSIS: LC_WB NEGATIVE FOR INTRAEPITHELIAL LESION OR MALIGNANCY. IGP,RFX APTIMA SPECIMEN ADEQUACY: LC_WB Satisfactory for evaluation. Endocervical and/or squamous metaplastic cells (endocervical component) are present. IGP,RFX APTIMA PERFORMED BY: LC_WB Ro Cruz Cigarette Lighter Repairer (ASCP) IGP,RFX APTIMA . . LC_WB IGP,RFX APTIMA NOTE: LC_WB The Pap smear is a screening test designed to aid in the detection of premalignant and malignant conditions of the uterine cervix. It is not a diagnostic procedure and should not be used as the sole means of detecting cervical cancer. Both false-positive and false-negative reports do occur. . IGP,RFX APTIMA TEST METHODOLOGY: LC_WB This liquid based ThinPrep(R) pap test was screened with the use of an image guided system. IGP,RFX APTIMA . LC_WB The HPV DNA reflex criteria were not met with this specimen result therefore, no HPV testing was performed. . Source.............Cervix;Endocervix LMP / Prev Treat...KAS=[id number] Other.............. No. of containers..01 ThinPrep Vial COVID AG -RAPID *Negative results from patients with symptom onset beyond five days should be treated as presumptive and confirmed by a molecular assay if clinically necessary. Negative results should not be used as the sole basis for treatment or for patient management. *Positive results do not differentiate between SARS-CoV and SARS-CoV-2. If differentation of the specific SARS virus is desired an additional sample and an additional order is required. * This test has not been FDA cleared or approved; the test has been authorized by FDA under an Emergency Use Authorization (EAU) for use by laboratories certified under CLIA that meet the requirements to perform moderate, high, or waived complexity tests. Normal Reference Range: Negative Testing performed on [employer] analyzer ARNAV (lateral flow immunofluorescent assay) SARS-CoV-2 (COVID 19) Negative == ==== Impression /Plan: 40 wks + 1 days intrauterine in active labor. Preparations in progress for delivery.
--- NOTE | 2020-12-08 12:00 | PCM.OPRPT ---
Vaginal Delivery Maternal Presentation: Active Labor Amniotic Membrane Rupture Type: Artificial Amniotic Fluid Description: Clear Final MYRON: 12/07/20 Gestational age: 40 Weeks and 1 Days Date of Procedure: 12/08/20 Pre-Operative Diagnosis: IUP Post-Operative Diagnosis: IUP Surgery/ Procedure Performed: Spontaneous Vaginal Delivery Type of Anesthesia: None Description of Procedure: Spontaneous vaginal delivery of a viable male with Apgars of 9/9 from an occiput anterior presentation with clear amniotic fluid and normal three-vessel placenta. No episiotomy. Second-degree midline laceration repaired with 3-0 Rapide suture. Sponges okay. Delivery physician: Jamir Segura MD. Presentation: Vertex Placental Delivery Description: Spontaneous Placenta Disposition: [facility] Cord Vessel Description: 3 Vessels Cord Entanglement: Around neck x 1, tight Estimated Blood Loss: 250 cc Infant A gender: Male (1 minute): 9 (5 minute): 9 Episiotomy Description: None Laceration: Midline, 2nd degree Medications given after delivery: IV Pitocin Complications: None
--- NOTE | 2020-12-08 12:02 | DCINST_ITS ---
<Jamir Segura - Last Filed: 12/08/20 12:02> Discharge Activity: May Shower, May Take a Tub Bath May resume sexual activity in: 4-6 weeks Additional Activity Instructions:: Nothing in the vagina for 4-6 weeks. You may return to work/school in 6 weeks. Call your doctor if you observe: Inability to urinate, Inability to have a bowel movement, Using more than one pad per hour Additional Instructions: If you experience any of the following, contact your healthcare provider. * Bleeding that soaks a pad every hour for 2 hours * Fever 100.4 or higher * Unrelieved incision or abdominal pain * Swelling, redness, discharge or bleeding from your incision or episiotomy site * Your incision begins to separate * Problems urinating (including inability to urinate or burning while urinating). * Visual changes * Severe headache * Flu-like symptoms * Pain or redness in one of both of your breasts * Pain, warmth, tenderness or swelling in your legs, especially the calf area * Frequent nausea and vomiting * Symptoms of depression or anxiety If you experience any of the following, call 911 or go to the nearest Emergency Room. * Chest pain * Problems breathing * Seizure activity * Partial or complete paralysis of a body part, slurred speech, weakness or drooping of the face, or a sudden inability to walk or hold your balance Allergies/Adverse Reactions: Allergies No Known Allergies Allergy (Verified 12/08/20 08:18) Medications to take at Discharge Folic Acid 0.8 mg PO DAILY 02/16/18 Pnv No.103/Folic/Om3s/Fish Oil [ Gummies] 1 each PO DAILY 02/16/18 Ferrous Sulfate [Iron] 325 mg PO 12/08/20 Please Follow Up With: Jamir Segura MD - [phone] When: Call to make an appointment with your doctor in 6 weeks. Primary Care Physician: Hernandez Sifuentes MD [Primary Care Provider] - Test Results: Test results from this visit will be discussed in further detail at your follow- up appointment, if applicable. <Romie De La Rosa - Last Filed: 12/09/20 08:40> Additional Instructions: If you experience any of the following, contact your healthcare provider. * Bleeding that soaks a pad every hour for 2 hours * Fever 100.4 or higher * Unrelieved incision or abdominal pain * Swelling, redness, discharge or bleeding from your incision or episiotomy site * Your incision begins to separate * Problems urinating (including inability to urinate or burning while urinating ). * Visual changes * Severe headache * Flu-like symptoms * Pain or redness in one of both of your breasts * Pain, warmth, tenderness or swelling in your legs, especially the calf area * Frequent nausea and vomiting * Symptoms of depression or anxiety If you experience any of the following, call 911 or go to the nearest Emergency Room. * Chest pain * Problems breathing * Seizure activity * Partial or complete paralysis of a body part, slurred speech, weakness or drooping of the face, or a sudden inability to walk or hold your balance Test Results: Test results from this visit will be discussed in further detail at your follow- up appointment, if applicable.
--- NOTE | 2020-12-08 12:02 | PCM.DCVAG ---
<Jamir Segura - Last Filed: 12/08/20 12:02> Discharge Activity: May Shower, May Take a Tub Bath May resume sexual activity in: 4-6 weeks Additional Activity Instructions:: Nothing in the vagina for 4-6 weeks. You may return to work/school in 6 weeks. Call your doctor if you observe: Inability to urinate, Inability to have a bowel movement, Using more than one pad per hour Additional Instructions: If you experience any of the following, contact your healthcare provider. Bleeding that soaks a pad every hour for 2 hours Fever 100.4 or higher Unrelieved incision or abdominal pain Swelling, redness, discharge or bleeding from your incision or episiotomy site Your incision begins to separate Problems urinating (including inability to urinate or burning while urinating). Visual changes Severe headache Flu-like symptoms Pain or redness in one of both of your breasts Pain, warmth, tenderness or swelling in your legs, especially the calf area Frequent nausea and vomiting Symptoms of depression or anxiety If you experience any of the following, call 911 or go to the nearest Emergency Room. Chest pain Problems breathing Seizure activity Partial or complete paralysis of a body part, slurred speech, weakness or drooping of the face, or a sudden inability to walk or hold your balance Allergies/Adverse Reactions: Allergies No Known Allergies Allergy (Verified 12/08/20 08:18) Medications to take at Discharge Folic Acid 0.8 mg PO DAILY 02/16/18 Pnv No.103/Folic/Om3s/Fish Oil [ Gummies] 1 each PO DAILY 02/16/18 Ferrous Sulfate [Iron] 325 mg PO 12/08/20 Please Follow Up With: Jamir Segura MD - [phone] When: Call to make an appointment with your doctor in 6 weeks. Primary Care Physician: Hernandez Sifuentes MD [Primary Care Provider] - Test Results: Test results from this visit will be discussed in further detail at your follow-up appointment, if applicable. <Romie De La Rosa - Last Filed: 12/09/20 08:40> Additional Instructions: If you experience any of the following, contact your healthcare provider. Bleeding that soaks a pad every hour for 2 hours Fever 100.4 or higher Unrelieved incision or abdominal pain Swelling, redness, discharge or bleeding from your incision or episiotomy site Your incision begins to separate Problems urinating (including inability to urinate or burning while urinating). Visual changes Severe headache Flu-like symptoms Pain or redness in one of both of your breasts Pain, warmth, tenderness or swelling in your legs, especially the calf area Frequent nausea and vomiting Symptoms of depression or anxiety If you experience any of the following, call 911 or go to the nearest Emergency Room. Chest pain Problems breathing Seizure activity Partial or complete paralysis of a body part, slurred speech, weakness or drooping of the face, or a sudden inability to walk or hold your balance Test Results: Test results from this visit will be discussed in further detail at your follow-up appointment, if applicable.
[2020-12-08] MEDS: Oxytocin 30 units/NS 500 ml 30 UNITS/500 ML IV.SOLN 334 UNITS IV (13:15)
[2020-12-08] MEDS: Ibuprofen 600 MG Tablet PO (14:44)
[2020-12-08] MEDS: Acetaminophen 500 MG Tablet 1000 MG PO (20:42)
[2020-12-09] MEDS: Senna/Docusate Sodium 1 Tablet PO (01:30)
[2020-12-09] MEDS: Ibuprofen 600 MG Tablet PO ×2 (01:40→09:35)
[2020-12-09 04:10] VITALS: BP 107/69; PULSE 115; RESP 18; TEMP 36.8
[2020-12-09] MEDS: Acetaminophen 500 MG Tablet 1000 MG PO ×2 (04:44→14:58)
--- NOTE | 2020-12-09 08:40 | PCM.PN.OB ---
Subjective: No overnight complaints - Physical Exam Vitals/I&O's: Vital Signs Temp Pulse Resp BP Pulse Ox 98.2 F 115 H 18 107/69 95 12/09/20 04:10 12/09/20 04:10 12/09/20 04:10 12/09/20 04:10 12/08/20 14:05 Oxygen Delivery Method Room Air Weight: 147 lb 9.6 oz Body Mass Index (BMI) 28.5 Intake and Output for Last 24 Hours 12/07/20 12/08/20 12/09/20 23:59 23:59 23:59 Intake Total 670.83 / 670.83 Output Total 600 / 600 Balance 70.83 / 70.83 General: Alert, Oriented x3, Cooperative, No apparent distress HEENT: Atraumatic, Normocephalic Oral: Moist Mucosa Neck: Supple Abdomen: Soft, Non Tender, - - Uterus firm below umbilicus Extremities: No clubbing, No cyanosis Neurological: Neuro grossly intact Psych/Mental Status: Normal Affect, Appropriate, Alert and oriented to time, place, person, mood and affect Microbiology Past 72 Hours 12/08/20 08:25 Mucosa - Nose SARS-CoV-2 Antigen (Rapid) - Final Laboratory Results 12/08/20 08:20: Blood Type A POSITIVE, Antibody Screen NEGATIVE Current Medications Acetaminophen (Acetaminophen 500 Mg Tablet) 1,000 mg PO Q8H PRN PRN PRN Reason: Pain Score 1-3 Last Admin: 12/09/20 04:44 Dose: 1,000 mg Documented by: Bisacodyl (Bisacodyl 10 Mg Suppository) 10 mg RC UD PRN PRN Reason: If no BM Dibucaine (Dibucaine 30 Gm Tube) 1 applic TOPICAL TID PRN PRN; Protocol PRN Reason: Discomfort Hydrocortisone (Hydrocortisone 2.5% Crm) 1 applic TOPICAL TID PRN PRN; Protocol PRN Reason: Discomfort Ibuprofen (Ibuprofen 600 Mg Tablet) 600 mg PO Q6H PRN PRN PRN Reason: Pain Score 1-3 Last Admin: 12/09/20 01:40 Dose: 600 mg Documented by: Methylergonovine Maleate (Methylergonovine 0.2 Mg/Ml Ampul) 0.2 mg IM X1 PRN PRN Reason: Excess bleeding/uterine atony Ondansetron HCl (Ondansetron 4 Mg/2 Ml Vial) 4 mg IV Q4H PRN PRN PRN Reason: Nausea Senna/Docusate Sodium (Senna/Docusate Sodium 1 Tablet) 1 - 2 tablet PO DAILY PRN PRN PRN Reason: Constipation Last Admin: 12/09/20 01:30 Dose: 2 tablet Documented by: Simethicone (Simethicone 80 Mg Tablet) 80 mg PO PCHS PRN PRN Reason: Indigestion/Stomach pain Sodium Chloride (0.9% Saline Lock 10 Ml Syringe) 5 - 15 ml IV UD PRN PRN Reason: SALINE FLUSH Zolpidem Tartrate (Zolpidem Tartrate 5 Mg Tablet) 5 mg PO QHS PRN PRN PRN Reason: Insomnia Medical Necessity - Tobacco Use Smoking Status: Former smoker Assessment/Plan All Active Problems False labor after 37 weeks of gestation without delivery (Acute) Acute cystitis during in third trimester (Acute) day 2. Pain well controlled. Minimal lochia. Okay to discharge home today
[2020-12-09 08:45] VITALS: BP 108/73; PULSE 92; RESP 16; TEMP 36.8
[2020-12-09 14:00] VITALS: BP 109/51; PULSE 89; RESP 18; TEMP 36.6
== END 2020-12-09 18:35 | disposition home or self-care (01) | DRG 807 ==
LOC: WPOUT 08:01 → WP 08:01
PROVIDERS: Admitting Provider Obstetrics & Gynecology; PCP Family Medicine; Referring Provider Obstetrics & Gynecology; Visit Provider Obstetrics & Gynecology
DX: O70.1 Second degree perineal laceration during delivery (principal); Z37.0 Single live birth; O26.23 Pregnancy care for patient with recurrent pregnancy loss, third trimester; O99.02 Anemia complicating childbirth; D64.9 Anemia, unspecified; Z3A.40 40 weeks gestation of pregnancy; Z87.891 Personal history of nicotine dependence; Z98.1 Arthrodesis status
CPT/HCPCS: 59025; 59050; 85025; 86850; 86900; 86901; 87426; 99218; J7120; G0378

== ENCOUNTER 2020-12-10 14:31 | Outpatient (CLI) | payer OTHER, BC, SELFPAY ==
[2020-12-08 08:06] VITALS: BMI 28.5
== END 2020-12-10 15:30 | disposition home or self-care (01) ==
LOC: WPOUT 14:51 → WP 14:52
PROVIDERS: PCP Family Medicine; Visit Provider Obstetrics & Gynecology
DX: Z00.00 Encounter for general adult medical examination without abnormal findings (principal)